=== PATIENT | female | born 1950 | race Caucasian/White ===

== ENCOUNTER 2023-02-27 23:29 | Outpatient (CLI) | payer MEDICARE, SELFPAY | END 2023-02-27 23:30 | disposition home or self-care (01) | LOC: AMB 03-01 11:18 | PROVIDERS: Visit Provider Family Medicine | DX: F12.10 Cannabis abuse, uncomplicated (principal); R42 Dizziness and giddiness | CPT/HCPCS: A0425; A0427 ==

== ENCOUNTER 2023-02-28 00:16 | Emergency (ER) | payer MEDICARE, SELFPAY ==
[2023-02-28 00:22] VITALS: BP 150/85; PULSE 92; RESP 26; TEMP 37.1; O2SAT 98
--- NOTE | 2023-02-28 00:56 | ED.NURSE ---
Patient able to answer questions now and states she is no loner spinning. Patient's SpO2 drops to 87% RA when sleeping. Patient's SpO2 immediately increases to 98% after waking to voice.
--- NOTE | 2023-02-28 01:15 | ED_ITS ---
HPI - General Adult General Chief complaint: Overdose Stated complaint: Overdose Time Seen by Provider: 02/28/23 01:03 Source: patient and EMS Mode of arrival: EMS History of Present Illness HPI narrative: 72-year-old female presents the emergency department 2 hours after she used a THC gummy and went to bed. She was found by her family to be screaming, agitated, complaining of vertigo-like symptoms. EMS reports that she was the same, they administered 1 mg of Ativan. She reports a feeling of panic, anxiety. It is improving after the Ativan. She denies other focal neurological changes besides the vertigo and nausea. No difficulty moving extremities. Was neurologically normal at 2100 when she went to bed. No recent fevers, no falls or trauma. No recent injury. No other new medications. This was the 1st time she had used THC gummy but has use topical creams for pain relief in the past with no adverse effects. She reports a history of vertigo in the past, states that this feels different. She almost feels like she is rolling but the room is not spinning. No new medications besides the THC. Denies other intoxication or drug use. Reports no prior history of stroke or use of anticoagulants. Prior history of vertigo noted. ROS notable for the vertigo, anxiety as described above. She also reports some nausea, otherwise denies times 12 systems including no other neurological changes. Exam Narrative: Exam Narrative: Respiratory rate is 16 at the time of my exam. Const: Vital Signs, click to edit/add: Vital Signs - 24 hr 02/28/23 00:22 Temperature 98.7 F Pulse Rate [Left P ulse Oximeter] 92 Respiratory Rate 26 H Blood Pressure [Ri ght Upper Arm] 150/85 H Pulse Oximetry 98 Oxygen Delivery Me thod Room Air Documenting provider has reviewed patient's vital signs: yes General appearance: well kempt Other: Asleep, arouses easily to voice. He is slow to answer questions but can do so completely. Can follow commands slowly but without difficulty. Movements are symmetric. No speech difficulty. HENMT: Common normals: normocephalic and head/scalp atraumatic Head and scalp: normocephalic and atraumatic Face and sinus: normal facial exam Mouth: oral and palatal mucosa normal Throat: posterior oropharynx normal Eye: Common normals: PERRL, EOMs intact bilaterally and conjunctivae normal General eye: normal appearance of both eyes Conjunctiva: conjunctiva(e) normal Pupil: PERRL Neck & C-Spine: Common normals: full ROM and no lymphadenopathy Resp: Common normals: normal respiratory effort, no use of accessory muscles and clear to auscultation bilaterally Effort & inspection: able to speak in complete sentences Auscultation: clear to auscultation bilaterally Cardio: Common normals: regular rate, regular rhythm, S1 normal heart sound, S2 normal heart sound and no murmurs Rate: regular rate Rhythm: regular rhythm Heart sounds: S1 normal and S2 normal GI: Common normals: Normal to inspection, nondistended, normoactive bowel sounds present, soft to palpation, non-tender, no hepatosplenomegaly and no masses Palpation: soft and no hepatosplenomegaly Extremity: Common normals: normal to inspection, full ROM and normal capillary refill Neuro: Speech: speech normal Motor exam: strength 5/5 throughout and no movement abnormalities noted Psych: Appearance: well kempt Other: Mildly anxious. Initially act 2 fatigued to move and participate but when her son start answering for her, she jumps and quickly and corrects him. And subsequently she becomes more animated. She will follow all commands when asked. She declines nausea and vertigo medication treatment, stating that in the past these have made her worse. Skin: Common normals: no rashes or lesions noted General skin exam: no rashes or lesions noted Course Course Hospital Course: THC intoxication with typical side effects. There are no features of stroke present. Differential diagnosis includes other intoxication, metabolic abnormality, possible small CVA. The fact that her movements are symmetric, she is answering questions appropriately, there are no speech abnormalities and there is no nystagmus on exam is reassuring. I recommended a period of watchful waiting since she declines nausea and vertigo medication treatment. I recommend basic labs and urinalysis. Repeat neurological examination a couple of hours. If no clinical improvement, consider CT scan. Reevaluation(s) Time of Reevaluation #1: 02:49 Reevaluation #1: Patient is ambulated to the bathroom with no difficulty. She is feeling much better. Dizziness has resolved. We discussed her lab work, all reassuring. She has no further questions and does feel safe going home. Discussed avoidance of THC products such as this in the future. Counseled that melatonin would be safer for her to use at bedtime if needed. She verbalizes understanding and agreement and has no further questions. Alarm symptoms reviewed that would warrant repeat ED presentation. Vital Signs Vital signs: Initial Vital Signs Temperature 98.7 F 02/28/23 00:22 Temperature Source Temporal Artery Scan 02/28/23 00:22 Pulse Rate 92 02/28/23 00:22 Pulse Rhythm Regular 02/28/23 00:22 Respiratory Rate 26 H 02/28/23 00:22 Blood Pressure 150/85 H 02/28/23 00:22 Blood Pressure Mean 106 H 02/28/23 00:22 Blood Pressure Position Supine 02/28/23 00:22 Pulse Oximetry 98 02/28/23 00:22 Oxygen Delivery Method Room Air 02/28/23 00:22 Vital Signs Temperature 98.7 F 02/28/23 00:22 Pulse Rate 92 02/28/23 00:22 Respiratory Rate 26 H 02/28/23 00:22 Blood Pressure 150/85 H 02/28/23 00:22 Pulse Oximetry 98 02/28/23 00:22 Oxygen Delivery Method Room Air 02/28/23 00:22 Temperature 98.7 F 02/28/23 00:22 Pulse Rate 92 02/28/23 00:22 Respiratory Rate 26 H 02/28/23 00:22 Blood Pressure 150/85 H 02/28/23 00:22 Pulse Oximetry 98 02/28/23 00:22 Oxygen Delivery Method Room Air 02/28/23 00:22 Medical Decision Making Lab Data Lab results reviewed: Yes I reviewed the patient's lab results Lab results narrative: Reassuring Labs: Lab Results 02/28/23 Range/Units 01:40 WBC 8.12 (4.50-11.00) K/uL RBC 4.34 (4.00-5.20) m/uL Hgb 12.8 (12.0-16.0) gm/dL Hct 38.8 (33.0-51.0) % MCV 89 (80-100) fL MCH 30 (26-34) pg MCHC 33 (32-36) gm/dL RDW Coeff of Rishi 12.3 (11.5-15.5) % Plt Count 210 (140-440) K/uL Neut % (Auto) 84.1 H (42.0-72.0) % Lymph % (Auto) 10.5 L (20-44) % [place] % (Auto) 4.3 (0.0-11.0) % Eos % (Auto) 0.7 (0.0-7.0) % Baso % (Auto) 0.2 (0.0-3.0) % Neut # (Auto) 6.80 (1.7-7.0) K/uL Lymph # (Auto) 0.90 (0.90-2.90) K/uL [place] # (Auto) 0.30 (0.00-0.90) K/UL Eos # (Auto) 0.06 (0.00-0.50) K/uL Baso # (Auto) 0.02 (0.00-0.30) K/uL Abs Immat Gran (auto) 0.02 (0.00-0.30) K/uL Imm/Tot Granulo (auto) 0.2 % Sodium 139 (135-149) mmol/L Potassium 3.6 (3.6-5.1) mmol/L Chloride 109 (96-114) mmol/L Carbon Dioxide 22 (20-32) mmol/L Anion Gap 8 (7-15) mEq/L BUN 18 (7-30) mg/dL Creatinine 0.6 (0.5-1.5) mg/dL Estimated GFR 96 ml/min Glucose 157 H (60-115) mg/dL Calcium 8.8 (8.4-10.6) mg/dL Total Bilirubin 0.5 (0.1-1.5) mg/dL AST 30 (12-35) U/L ALT 29 (4-35) U/L Alkaline Phosphatase 108 (40-150) U/L C-Reactive Protein 0.8 (0.5-1.0) mg/dL Total Protein 6.5 (6.0-8.3) g/dL Albumin 3.8 (3.3-5.0) g/dL Urine Color Yellow (Yellow) Urine Appearance Clear (Clear) Urine pH 8.0 (5.0-8.5) Ur Specific [place] 1.020 (1.000-1.030) Urine Protein Negative (Negative) Urine Glucose (UA) Trace A (Negative) Urine Ketones Negative (Negative) Urine Blood Negative (Negative) Urine Nitrite Negative (Negative) Urine Bilirubin Negative (Negative) Urine Urobilinogen 0.2 (0.2-1.0) Ur Leukocyte Esterase Negative (Negative) Urine Opiates Screen Negative (Negative) Ur Oxycodone Screen Negative (Negative) Urine Methadone Screen Negative (Negative) Ur Propoxyphene Screen Negative (Negative) Ur Barbiturates Screen Negative (Negative) U Tricyclic Antidepress Negative (Negative) Ur Phencyclidine Scrn Negative (Negative) Ur Amphetamines Screen Negative (Negative) U Methamphetamines Scrn Negative (Negative) U Benzodiazepines Scrn Negative (Negative) Urine Cocaine Screen Negative (Negative) U Marijuana (THC) Screen POSITIVE A (Negative) Ur Drug Screen Comment See Note Ethyl Alcohol < 0.01 L (0.01-0.03) % Discharge Plan Discharge Clinical Impression: Adverse drug event Patient Disposition: Home w/ Parent or Adult Condition: Improved Instructions: Adverse Drug Reaction (ED) Additional Instructions: As we discussed, you have had a common side effect to THC. Unfortunately it is not always a pleasant experience for everyone. Your likely to have similar side effects if you try the medication again. Therefore I do not recommend use of ingested will THC products for you. You may continue using the low-dose drops and topical treatment the you have used in the past. For sleep, melatonin is quite safe. I would recommend starting at 5 mg at bedtime as needed, you may increase up to 10 mg. The medication will take about 24 hours to get out of your system. You will likely still have some mild dizziness, fatigue and anxiety for about 12 hours post ingestion. It is okay to eat and drink normally. Your cleared to drive and participate in typical activities after 10:00 a.m.. Drink plenty of fluids today to reduce her risk of headache, fatigue and return of the dizziness. Activity Level: Activity as Tolerated Discharge Diet: Regular Stand Alone Forms: [facility] Info Instructions
[2023-02-28 01:49] LABS: Basophils Absolute Auto 0.02 K/uL (0.00-0.30); Basophils Percent Auto 0.2 % (0.0-3.0); Eosinophils Absolute Auto 0.06 K/uL (0.00-0.50); Eosinophils Percent Auto 0.7 % (0.0-7.0); Hematocrit 38.8 % (33.0-51.0); Hemoglobin* 12.8 gm/dL (12.0-16.0); Immature Granulocytes Abs Auto 0.02 K/uL (0.00-0.30); Immature Granulocytes Pct Auto 0.2 %; Lymphocytes Percent Auto 10.5 % (20-44); Mean Corpuscular HGB Conc 33 gm/dL (32-36); Mean Corpuscular Hemoglobin 30 pg (26-34); Mean Corpuscular Volume 89 fL (80-100); Monocytes Percent Auto 4.3 % (0.0-11.0); Neutrophils Percent Auto 84.1 % (42.0-72.0); Platelet Count* 210 K/uL (140-440); RDW Coefficient of Variation % 12.3 % (11.5-15.5); Red Blood Count 4.34 m/uL (4.00-5.20); White Blood Count* 8.12 K/uL (4.50-11.00)
[2023-02-28 01:57] LABS: Slide Review Reflex No
[2023-02-28 01:58] LABS: Amphetamine Screen Urine Negative (Negative); Appearance Urine Clear (Clear); Barbiturate Screen Urine Negative (Negative); Benzodiazepines Screen Urine Negative (Negative); Bilirubin Urine Negative (Negative); Blood Urine Negative (Negative); Cannabinoid Screen Urine POSITIVE (Negative); Cocaine Screen Urine Negative (Negative); Color Urine Yellow (Yellow); Glucose Urine Trace (Negative); Ketones Urine Negative (Negative); Leukocyte Esterase Urine Negative (Negative); Methadone Screen Urine Negative (Negative); Methamphetamines Screen Urine Negative (Negative); Nitrite Urine Negative (Negative); Opiate Screen Urine Negative (Negative); Oxycodone Screen Urine Negative (Negative); Phencyclidine Screen Urine Negative (Negative); Protein Urine Negative (Negative); Tricyclic Antidepressant Urine Negative (Negative); Urobilinogen Urine 0.2 (0.2-1.0)
[2023-02-28 02:01] LABS: Chloride* 109 mmol/L (96-114)
[2023-02-28 02:02] LABS: Albumin* 3.8 g/dL (3.3-5.0); Potassium* 3.6 mmol/L (3.6-5.1); Sodium* 139 mmol/L (135-149)
[2023-02-28 02:04] LABS: Bilirubin Total* 0.5 mg/dL (0.1-1.5); Creatinine* 0.6 mg/dL (0.5-1.5); Estimated Glomerular Filt Rate 96 ml/min
[2023-02-28 02:05] LABS: Alanine Aminotransferase* 29 U/L (4-35); Alkaline Phosphatase* 108 U/L (40-150); Aspartate Amino Transferase* 30 U/L (12-35); Blood Urea Nitrogen* 18 mg/dL (7-30); Carbon Dioxide* 22 mmol/L (20-32); Total Protein* 6.5 g/dL (6.0-8.3)
[2023-02-28 02:06] LABS: Calcium* 8.8 mg/dL (8.4-10.6); Glucose* 157 mg/dL (60-115)
[2023-02-28 02:07] LABS: Anion Gap 8 mEq/L (7-15); Ethanol* < 0.01 % (0.01-0.03)
[2023-02-28 02:08] LABS: C Reactive Protein* 0.8 mg/dL (0.5-1.0)
== END 2023-02-28 03:03 | disposition home or self-care (01) ==
PROVIDERS: Emergency Provider Family Medicine
DX: R42 Dizziness and giddiness (principal); T40.715A Adverse effect of cannabis, initial encounter
CPT/HCPCS: 36415; 80053; 80306; 81003; 82077; 85025; 86140; 99283; 99284